=== PATIENT | female | born 1995 | race Caucasian/White ===

== ENCOUNTER 2020-07-02 11:11 | Outpatient (REF) | payer OTHER, SELFPAY ==
[2020-07-02 14:46] LABS: HCG Quantitative 9525 mIU/mL
== END 2020-07-02 11:12 | disposition home or self-care (01) ==
LOC: HO.HMGCLDS 11:11
PROVIDERS: PCP Hospitalist; Visit Provider Family Medicine
DX: Z30.09 Encounter for other general counseling and advice on contraception (principal)
CPT/HCPCS: 84702

== ENCOUNTER → 2020-07-12 10:51 | Outpatient (BNVA) | payer OTHER, SELFPAY | PROVIDERS: PCP Hospitalist; Visit Provider Advanced Practice Midwife | DX: O21.9 Vomiting of pregnancy, unspecified (principal); O99.331 Smoking (tobacco) complicating pregnancy, first trimester; O99.321 Drug use complicating pregnancy, first trimester; F17.210 Nicotine dependence, cigarettes, uncomplicated; F12.90 Cannabis use, unspecified, uncomplicated; Z3A.01 Less than 8 weeks gestation of pregnancy | CPT/HCPCS: 81025; 99211 ==

== ENCOUNTER → 2020-07-26 10:02 | Outpatient (BNVA) | payer OTHER, SELFPAY | PROVIDERS: PCP Hospitalist; Visit Provider Advanced Practice Midwife | DX: Z76.89 Persons encountering health services in other specified circumstances (principal) | CPT/HCPCS: 99212 ==

== ENCOUNTER 2021-07-07 19:18 | Outpatient (REF) | payer OTHER, SELFPAY ==
[2021-07-07 20:02] LABS: Influenza A PCR NEGATIVE (Negative); Influenza B PCR NEGATIVE (Negative); Resp Syncy Virus RNA Qual PCR POSITIVE (Negative); SARS COV2 PCR INHOUSE NEGATIVE (Negative)
== END 2021-07-07 19:19 | disposition home or self-care (01) ==
LOC: HO.LNP 19:18
PROVIDERS: Visit Provider Family Medicine
DX: Z20.822 Contact with and (suspected) exposure to COVID-19 (principal); B34.9 Viral infection, unspecified
CPT/HCPCS: 0241U

== ENCOUNTER 2025-03-07 08:39 | Emergency (ER) | payer OTHER, SELFPAY ==
--- NOTE | ~2025-03-07 | US_ITS ---
CLINICAL HISTORY: on 02 17, bleeding pain, r o retained POC US pelvis transabdominal and transvaginal With color Doppler tracing Comparison: None provided Findings: Uterus measures 8.4 x 4.1 x 4.9 cm. Normal myometrium. No endometrial lesion, 4-5 mm thickness. Small amount of endometrial and endocervical luminal fluid/secretions. Right ovary 2.8 x 2.1 x 2.7 cm. Left ovary 2.2 x 1.5 x 1.5 cm. Normal color Doppler of both ovaries. No free fluid. IMPRESSION: No evidence of retained products of conception. Small amount of fluid/secretions in the endometrial canal. This document has been electronically signed by: Leslie Klein MD on 03/07/2025 11:14:15
[2025-03-07 08:50] VITALS: BP 122/68; PULSE 81; RESP 16; TEMP 36.6; O2SAT 99; BMI 28.3
--- OUTSIDE RECORDS SUMMARY | 2025-03-07 09:45 | XMS_ITS | Encounter Summary ---
Author Organization [facility] Address [address] [place] [address] Phone Care Team Providers Care Furniture Refinisher Name Role Phone Andie Pina MD Primary Care Provider [phone] Encounter Details Date Type Department Care Team (Late st Contact Info) Description 12/14/2010 Conversion Encounter [facility] [address] [place] [id number] Social History Tobacco Use Types Packs/Day Years Used Date Smoking Tobacco: Never Assessed Comments Unknown Sex and Gender Information Value Date Recorded Sex Assigned at Not on file Legal Sex Female 6:43 PM EDT Gender Identity Not on file Sexual Orientation Not on file documented as of this encounter Plan of Treatment Not on file documented as of this encounter Visit Diagnoses Not on filedocumented in this encounter Care Teams Furniture Refinisher Relationship Specialty Start Date End Date Andie Pina MD PCP - General 11/21/17 documented as of this encounter
--- NOTE | 2025-03-07 09:57 | ED.PREGNANCY ---
HPI - General Chief complaint: Vaginal Bleeding Stated complaint: Vaginal bleeding Time Seen by Provider: 03/07/25 09:05 Source: patient Mode of arrival: ambulatory Limitations: no limitations History of Present Illness ED Provider: Iris Recinos APRN HPI Narrative: 29-year-old female with a history of anxiety, depression, ADHD, bipolar disorder presents the ER with complaints of vaginal bleeding and lower abdominal pain intermittently over the last 2 weeks. Patient reports that she had a surgical on February 17 at [facility] and [place]. She had some light bleeding and cramping after this. She reports bleeding and pain worsened after having sexual intercourse on the weekend of the with her partner. she has had intermittent bleeding and pain since then. Some days her bleeding is light and she does not need to use any tampons or pads. Other days she has heavier bleeding and can use up to 5 pads per day. She reports this is associated with lower abdominal cramping. She denies any fevers, chills, urinary complaints. She does not have a follow-up scheduled. She does see OBGYN at [facility] but is unsure of the name of her provider. She is currently on Depo. Her LMP was 12/05. She is [id number] Related Data Home Medications ?Medication ?Instructions ?Recorded ?Confirmed buspirone 10 mg tablet mg PO 06/04/20 07/26/20 clonazepam 1 mg tablet 1 mg PO BEDTIME PRN 06/04/20 lisdexamfetamine 50 mg capsule 50 mg PO QAM 06/04/20 trazodone 50 mg tablet 50 mg PO BEDTIME 06/04/20 Previous Rx's ?Medication ?Instructions ?Recorded vitamins with calcium 1 tab PO DAILY 30 days #30 tabs 07/12/20 no.72-iron 27 mg-folic acid 1 mg tablet ( Plus (calcium carbonate)) doxycycline monohydrate 100 mg 100 mg PO BID #28 caps 03/07/25 capsule metronidazole 500 mg tablet 500 mg PO BID 14 days #28 tabs 03/07/25 ondansetron 4 mg disintegrating 4 mg PO Q6H PRN nausea and 03/07/25 tablet vomiting #15 tabs Allergies Allergy/AdvReac Type Severity Reaction Status Date / Time No Known Allergies (No Known Allergy Verified 03/07/25 08:54 Allergies*) Review of Systems Review of Systems: Yes all other systems are reviewed and are negative Constitutional: Constitutional: Reports no additional constitutional complaints, Denies body ache(s), Denies chills, Denies fever(s), Denies headache(s) and Denies weakness Eyes: Eyes: Reports no additional eye complaints and Denies change in vision ENT: Reports system reviewed and no additional complaints, except as documented, Denies dizziness, Denies headache(s), Denies nasal congestion, Denies nasal discharge and Denies neck pain Cardiovascular: Cardiovascular: Reports no additional cardiovascular complaints, Denies chest pain, Denies leg edema and Denies dyspnea Respiratory: Respiratory: Reports no additional respiratory complaints, Denies cough and Denies dyspnea Gastrointestinal: Gastrointestinal: Reports no additional gastrointestinal complaints, Reports abdominal pain, Denies diarrhea, Denies nausea and Denies vomiting Genitourinary: Genitourinary: Reports no additional female genitourinary complaints, Reports abnormal vaginal bleeding and Denies urinary incontinence Musculoskeletal: Musculoskeletal: Reports no additional musculoskeletal complaints, Denies back pain, Denies arthralgias, Denies joint swelling, Denies neck pain, Denies numbness and Denies tingling Integumentary/Breasts: Skin/Breast: Reports system reviewed and no additional complaints, except as docu and Denies rash Neurologic: Reports system reviewed and no additional complaints, except as documented, Denies Abnormal speech present, Denies dizziness, Denies headache(s), Denies numbness, Denies tingling and Denies weakness PMFSH Past Medical History Attestation statement: The following information was validated with the patient. Source: old records reviewed and nursing notes reviewed Surgical History No pertinent past surgical history Family History Family History Father Hypertension Mother Chronic mental illness Maternal Grandfather Colon cancer Maternal Grandmother Ovarian cancer Social History Social History Household Members: Spouse and Family Alcohol intake: never Smoked in Last 30 Days: No Use of substances other than those prescribed or required for medical reasons: No Advance Directives: No Advance Directives Information Provided: Yes Do you have a plan to hurt others: No Plan Patient : No service: No Current occupational status: unemployed Current occupational exposures/hazards: No Physical Exam Vital Signs: Vital Signs: Last Vital Signs Temp 97.9 F 03/07/25 08:50 Pulse 81 03/07/25 08:50 Resp 16 03/07/25 08:50 BP 122/68 03/07/25 08:50 Pulse Ox 99 03/07/25 08:50 O2 Del Method Room Air 03/07/25 08:50 BMI result Body Mass Index 28.3 Const: General: cooperative, healthy appearing, comfortable and no acute distress Orientation/consciousness: patient oriented x3 Limitations: no limitations HEENT: Head: Yes normal to inspection Ears: hearing grossly normal bilaterally General nose exam: Normal external nose present Face and sinus: Yes normal facial exam Mouth: Normal oral and palatal mucosa present Throat: Yes posterior oropharynx normal Eyes: General: appearance normal, both eyes and all related structures Pupils: Equal, round and reactive pupils present Neck: Neck: Yes normal visual inspection Chest: Chest palpation & inspection: normal inspection of the chest Resp: Effort & Inspection: normal respiratory effort Auscultation: clear to auscultation bilaterally Cardio: Rate: regular rate Rhythm: regular rhythm Peripheral pulses: Peripheral pulses 2+ throughout GI: Inspection: Yes normal to inspection Palpation (GI): Soft to palpation and nontender Auscultation: normal bowel sounds : 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 with insertion of the speculum and swabbing of the cervical area External Female Exam: normal external appearance Speculum Exam - Vagina: normal appearance of the vagina Speculum Exam - Cervix: normal appearance of the cervix Back/Spine/Pelvis: Thoracic/Lumbar Spine: thoracic and lumbar spine normal to inspection Skin: General skin exam: no rashes or lesions noted Neuro: General: patient oriented x3, no focal motor deficits and normal sensation to monofilament Cranial nerves: Yes Equal, round and reactive pupils present Cognition (Neuro): normal cognition Speech: No Abnormal speech present Gait exam (Neuro): Normal gait present Motor exam (neuro): 5/5 motor strength present throughout Extrem: General: Yes normal to inspection Course Course Course Narrative: Labs are unremarkable. Ultrasound shows no retained products of conception. STI panel and vaginal swabs were sent. Patient does have some discomfort during the pelvic exam and so I believe that she may have pelvic inflammatory disease. Patient reports she has no concern for sexually transmitted diseases. I discussed treatment of pelvic inflammatory disease with treatment of ceftriaxone and going home with metronidazole and doxycycline. Patient has declined ceftriaxone. She is worried that she will need to return if she is positive for gonorrhea. I did review antibiotic course at home and recommendations for follow up outpatient with her OBGYN. Reviewed worrisome signs and symptoms of when to return to the emergency room. Comfortable plan for discharge home. Medical Decision Making Medical Decision Making [facility] Narrative: 29-year-old female with a history of anxiety, depression, ADHD, bipolar disorder presents the ER with complaints of vaginal bleeding and lower abdominal pain intermittently over the last 2 weeks. Patient reports that she had a surgical on February 17 at [facility] and [place]. She had some light bleeding and cramping after this. She reports bleeding and pain worsened after having sexual intercourse on the weekend of the with her partner. she has had intermittent bleeding and pain since then. Some days her bleeding is light and she does not need to use any tampons or pads. Other days she has heavier bleeding and can use up to 5 pads per day. She reports this is associated with lower abdominal cramping. She denies any fevers, chills, urinary complaints. She does not have a follow-up scheduled. She does see OBGYN at [facility] but is unsure of the name of her provider. She is currently on Depo. Her LMP was 12/05. She is [id number]. Abdomen is soft and nontender. Vitals are stable. Will obtain labs, UA, vaginal swabs, obtain pelvic exam and pelvic ultrasound Differential Diagnosis Differential Diagnoses: The differential diagnosis associated with the presentation includes Retained products of conception, STI, PID Admission/Observation Consideration of admission/observation: Escalation of care including admission/observation considered Lab Data [facility] Lab Attestation statement: I reviewed the patient's lab results. 03/07/25 09:49 03/07/25 09:49 Labs: Lab Results 03/07/25 Range/Units 09:49 WBC 5.6 (4.8-10.8) X10*3/uL RBC 4.38 (4.20-5.50) X10*6/uL Hgb 13.6 (12.0-16.0) g/dl Hct 39.3 (37.0-47.0) % MCV 89.7 (80.0-98.0) fL MCH 31.1 (27.0-33.0) pg MCHC 34.6 (31.0-35.0) g/dl RDW 12.9 (11.0-16.0) % Plt Count 309 (160-400) X10*3/uL MPV 8.6 L (9.4-12.3) fL Immature Gran % (Auto) 0.4 (0.0-0.4) % Neut % (Auto) 62.8 (45-73) % Lymph % (Auto) 27.5 (20-40) % Ransom % (Auto) 5.4 (2-11) % Eos % (Auto) 3.4 (0-4) % Baso % (Auto) 0.5 (0-2) % Lymph # (Auto) 1.5 (1.2-4.9) X10*3/uL Ransom # (Auto) 0.3 (0.1-1.2) X10*3/uL Eos # (Auto) 0.2 (0.0-0.4) X10*3/uL Baso # (Auto) 0.0 (0.0-0.2) X10*3/uL Abs Immat Gran (auto) 0.02 (0.00-0.03) X10*3/uL Absolute Neuts (auto) 3.5 (2.0-8.3) x10*3/uL Absolute Nucleated RBC 0.000 (0.0-0.012) X10*3/uL Nucleated RBC % (auto) 0.0 (0.0-0.2) /100WBC Sodium 142 (135-145) mmol/L Potassium 3.8 (3.3-5.1) mmol/L Chloride 111 H (96-108) mmol/L Carbon Dioxide 23 (22-29) mmol/L Anion Gap 12 (12-20) BUN 18 H (9-16) mg/dL Creatinine 0.78 (0.5-1.4) mg/dL Estim Creat Clear Calc 97.7 Estimated GFR > 60 Random Glucose 94 (60-115) mg/dL Calcium 9.0 (8.4-10.2) mg/dL Total Bilirubin 0.2 (0.0-1.0) mg/dL Direct Bilirubin < 0.2 (0.0-0.5) mg/dL AST 25 (5-31) U/L ALT 30 (0-31) U/L Alkaline Phosphatase 74 (39-117) U/L Total Protein 7.0 (6.5-8.0) g/dL Albumin 4.3 (3.5-5.0) g/dL Urine Color Yellow Urine Appearance Clear Urine pH 6.5 (5.0-9.0) Ur Specific [place] 1.015 (1.005-1.025) Urine Protein Negative (Neg-Trace) mg/dL Urine Glucose (UA) Negative (Negative) mg/dL Urine Ketones Negative (Negative) mg/dL Urine Blood Negative (Negative) Urine Nitrite Negative (Negative) Ur Leukocyte Esterase Moderate (2+) H (Negative) Urine RBC 0-2 (0-2) /HPF Urine WBC 0-5 (0-5) /HPF Ur Squamous Epith Cells 3-5 (0-2) /HPF Urine Bacteria 2+ (None Seen) Hyaline Casts 0-2 (0-2) /LPF Independent Interpretation I performed an independent interpretation of an: Ultrasound Interpretation: I independently viewed the ultrasound agree with the radiology report Radiology Impression Discussion of test interpretation with radiology: I have reviewed the radiologist's reading. Radiologist Impression: [place] [id number] Ultrasound Report Signed Patient: Rachel Bray MR#: [id number] : 1995 Acct:[id number] Age/Sex: 29 / F ADM Date: 03/07/25 Loc: .ED Attending Dr: Ordering Physician: Iris Reicnos NP Date of Service: 03/07/25 Procedure(s): US pelvic and transvaginal Accession Number(s): [id number] cc: Iris Recinos NP; Physician,Unknown ~ CLINICAL HISTORY: on 02 17, bleeding pain, r o retained POC US pelvis transabdominal and transvaginal With color Doppler tracing Comparison: None provided Findings: Uterus measures 8.4 x 4.1 x 4.9 cm. Normal myometrium. No endometrial lesion, 4-5 mm thickness. Small amount of endometrial and endocervical luminal fluid/secretions. Right ovary 2.8 x 2.1 x 2.7 cm. Left ovary 2.2 x 1.5 x 1.5 cm. Normal color Doppler of both ovaries. No free fluid. IMPRESSION: No evidence of retained products of conception. Small amount of fluid/secretions in the endometrial canal. This document has been electronically signed by: Leslie Klein MD on 03/07/2025 11:14:15 Discharge Plan Discharge Clinical Impression: Acute pelvic inflammatory disease (PID) Patient Disposition: Home, Self-Care Instructions: Pelvic Inflammatory Disease (ED) Additional Instructions: We did send testing for vaginal infections and sexually transmitted diseases. We will call you if these results are positive We are treating you for pelvic inflammatory disease. Take Motrin or Tylenol for pain as needed Pelvic rest for the next 7 days as discussed Follow-up outpatient with your OBGYN Prescriptions: New doxycycline monohydrate 100 mg capsule 100 mg PO BID Qty: 28 0RF metronidazole 500 mg tablet 500 mg PO BID 14 Days Qty: 28 0RF ondansetron 4 mg tablet,disintegrating 4 mg PO Q6H PRN (Reason: nausea and vomiting) Qty: 15 0RF No Action clonazepam 1 mg tablet 1 mg PO BEDTIME PRN trazodone 50 mg tablet 50 mg PO BEDTIME Vyvanse 50 mg capsule 50 mg PO QAM buspirone 10 mg tablet PO Plus (calcium carb) 27 mg iron- 1 mg tablet 1 tab PO DAILY 30 Days Qty: 30 11RF Referrals: Physician,Unknown J [Primary Care Provider, Medical] Print Language: Thai
[2025-03-07 10:04] LABS: Hematocrit 39.3 % (37.0-47.0); Hemoglobin 13.6 g/dl (12.0-16.0); Imm Gran Abs Auto 0.02 X10*3/uL (0.00-0.03); Imm Gran Pct Auto 0.4 % (0.0-0.4); Lymphocytes Absolute Auto 1.5 X10*3/uL (1.2-4.9); MANUAL DIFF FLAG NO; Mean Corpuscular HGB Conc 34.6 g/dl (31.0-35.0); Mean Corpuscular Hemoglobin 31.1 pg (27.0-33.0); Mean Corpuscular Volume 89.7 fL (80.0-98.0); NRBC Abs Auto 0.000 X10*3/uL (0.0-0.012); NRBC Pct Auto 0.0 /100WBC (0.0-0.2); Platelet Count 309 X10*3/uL (160-400); Red Blood Count 4.38 X10*6/uL (4.20-5.50); White Blood Count 5.6 X10*3/uL (4.8-10.8)
[2025-03-07 10:06] LABS: Appearance Urine Clear; Glucose Urine UA Negative (Negative); PH 6.5 (5.0-9.0); Specific Gravity - Urine 1.015 (1.005-1.025); UMIC TRIGGER UACC YES
[2025-03-07 10:19] LABS: UACC Culture Trigger YES
[2025-03-07 10:44] LABS: Alanine Aminotransferase 30 U/L (0-31); Albumin Level 4.3 g/dL (3.5-5.0); Alkaline Phosphatase 74 U/L (39-117); Anion Gap 12 (12-20); Aspartate Amino Transferase 25 U/L (5-31); Blood Urea Nitrogen 18 mg/dL (9-16); Calcium 9.0 mg/dL (8.4-10.2); Carbon Dioxide 23 mmol/L (22-29); Chloride 111 mmol/L (96-108); Creatinine Clr Calc Pharmacy 97.7; Estimated Glomerular Filt Rate > 60; Potassium 3.8 mmol/L (3.3-5.1); Sodium 142 mmol/L (135-145); Total Protein 7.0 g/dL (6.5-8.0)
[2025-03-07 11:44] VITALS: BP 122/68; PULSE 81; RESP 16; TEMP 36.6; O2SAT 99
[2025-03-07 12:33] LABS: Bacterial Vaginosis PCR POSITIVE (Negative); Candida Group PCR NOT DETECTED (Not Detect); Candida glab krusei PCR NOT DETECTED (Not Detect); Trichomonas vaginalis PCR DETECTED (Not Detect)
[2025-03-07 13:02] LABS: CT PCR NOT DETECTED (Not Detect.); NG PCR NOT DETECTED (Not Detect.)
== END 2025-03-07 11:46 | disposition home or self-care (01) ==
PROVIDERS: Nurse Practitioner Family; Emergency Provider Emergency Medicine
DX: N73.9 Female pelvic inflammatory disease, unspecified (principal); N93.9 Abnormal uterine and vaginal bleeding, unspecified; F31.9 Bipolar disorder, unspecified; F90.9 Attention-deficit hyperactivity disorder, unspecified type; Z79.899 Other long term (current) drug therapy
CPT/HCPCS: 36415; 76830; 76856; 80048; 80076; 81001; 81515; 85025; 87086; 87491; 87591; 99284

== ENCOUNTER → 2025-03-07 09:39 | Outpatient (BNV) | payer OTHER, SELFPAY | PROVIDERS: Emergency Provider Emergency Medicine; Visit Provider Radiology Diagnostic Radiology | DX: N93.9 Abnormal uterine and vaginal bleeding, unspecified (principal) | CPT/HCPCS: 76830; 76856 ==

== ENCOUNTER 2025-07-08 13:27 | Emergency (ER) | payer OTHER, SELFPAY ==
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
[2025-07-08 13:59] VITALS: BP 141/77; PULSE 98; RESP 18; TEMP 36.6; O2SAT 100; BMI 31.8
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
--- OUTSIDE RECORDS SUMMARY | 2025-07-08 15:41 | XMS_ITS | Clinical Summary ---
Author Organization [facility] Address [address] [place] [address] Phone Care Team Providers Care Syrup Mixer Helper Name Role Phone Andie Pina MD Primary Care Provider [phone] Allergies No known active allergies Medications clonazePAM 0.5 MG tablet TK 1 T PO QD PRN 1 9 Active FLUoxetine 20 MG capsule Take 1 capsule by mouth daily. 2 9 Active cetirizine (ZYRTEC ALLERGY) 10 MG tabletIndicatio ns:Acute maxillary sinusitis, recurrence not specified Take 1 tablet (10 mg total) by mouth nightly as needed for allergies or rhinitis. 30 tablet 1 9 Active busPIRone 10 MG tablet 9 Active traZODone 50 MG tablet as needed. 9 Active Active Problems Problem Noted Date Diagnosed Date Current moderate episode of major depressive disorder without prior episode 03/26/2019 Overview (03/26/2019): 03/19/2019 - [facility] at [facility] for [facility]. Discharged on fluoxetine, buspirone, clonazepam prn, trazodone prn. Assessment & Plan (03/26/2019 10:35 AM EDT): Stabilized after hospital program for depression and transitioning to a day program starting tomorrow. She has a therapist and medication provider. Follow up with psychiatric team. Attention deficit disorder 11/14/2011 Overview (07/23/2018): Attention deficit disorder, without hyperactivity (314.00) Onset: 11/14/2011 Added by: Andie Pina 07/2018 - Currently not on a stimulant medication for ADHD. Resolved Problems Problem Noted Date Diagnosed Date Resolved Date Overweight 01/05/2015 07/23/2018 Overview (07/22/2018): Overweight (278.02) Onset: 01/05/2015 Added by: Jared Davis Immunizations Immunization Administration Dates Next Due DTaP 5 05/25/2000, 7,1995, 996,1995 HPV, Quadrivalent 11/21/2007,07/23/2007,05/22/20 07 Hep B, ped/adol 1995,1995,1995 Hib (PRP-T) 07/28/1996, 6,1995, 995 IPV 05/25/2000 MMR 05/25/2000,04/25/1996 Meningococcal Conj (Menactra) MCV4P 01/23/2012,1 OPV 1995,1995,1995 Tdap 01/24/2017,05/01/2007 Varicella 05/01/2007,10/20/1996 Family History Medical History Relation Name Comments Heart disease (Premature) Father Blaze Asthma Mother Shannan Asthma Sister Marisela Relation Name Status Comments Father Blaze Mother Shannan Alive Sister Marisela Alive Social History Tobacco Use Types Packs/Day Years Used Date Smoking Tobacco: Never Comments:Never Smoker Alcohol Use Standard Drinks/Week Comments Yes 0 (1 standard drink = 0.6 oz pur e alcohol) Maybe once every other month Hunger/Food Answer Date Recorded No 04/10/2020 Stable Housing Answer Date Recorded No 04/10/2020 Transportation Concerns Answer Date Rec orded No 04/10/2020 Hazards in Home Answer Date Recorded No 05/31/2020 Financing Utilities Answer Date Recorde d No 05/31/2020 Safety at Home Answer Date Recorded No 05/31/2020 Outside Support Answer Date Recorded No 05/31/2020 Understanding Health Concerns Answer Da te Recorded No 05/31/2020 Financing Health Concerns Answer Date R ecorded No 05/31/2020 Missing School or Work Answer Date Ramin rded No 05/31/2020 Comments Unknown Sex and Gender Information Value Date Recorded Sex Assigned at Not on file Legal Sex Female 6:43 PM EDT Gender Identity Not on file Sexual Orientation Not on file Last Filed Vital Signs Vital Sign Reading Time Taken Comments Blood Pressure 96/68 03/26/2019 9:57 AM EDT Pulse 76 01/24/2017 12:05 PM EDT Temperature 36.2 C (97.2 F) 03/26/2019 9:57 AM EDT Respiratory Rate - - Oxygen Saturation - - Inhaled Oxygen Concentration - - Weight 69.6 kg (153 lb 8 oz) 03/26/2019 9:57 AM EDT Height 163 cm (5' 4.17 ) 03/26/2019 9:57 AM EDT Body Mass Index 26.21 03/26/2019 9:57 AM EDT Plan of Treatment Health Maintenance Due Date Last Done Comments Influenza Vaccines (#1) 2025 COVID-19 Vaccine ( season) 2025 DTaP,Tdap,and Td Vaccines (8 - Td or Tdap) 01/24/2027 01/24/2017, 05/01/2007, 05/25/2000, Additional history exists Hepatitis B Vaccines Completed 1995, 1995, 1995 HIB Vaccines Completed 07/28/1996, 03/1996, 1995, Additional history exists IPV Vaccines Completed 05/25/2000, 03/1996, 1995, Additional history exists MMR Vaccines Completed 05/25/2000, 04/25/1996 Varicella Vaccines Completed 05/01/2007, 10/20/1996 HPV Vaccines Completed 11/21/2007, 02/2008, 05/22/2007 Meningococcal Vaccine Completed 01/23/2012, 007 Hepatitis A Vaccines Aged Out No long er eligible based on patient's age to complete this topic Men B Vaccine Aged Out No longer elig ible based on patient's age to complete this topic Pneumococcal Vaccine Aged Out No long er eligible based on patient's age to complete this topic Procedures * Due to [place] [employer] law, this organization might not be sharing sensitive test results. Procedure Name Priority Date/Time Associated Diagnosis Comments CHLAMYDIA AND GONORRHEA, AMPLIFIED Routine 07/22/2018 3:34 PM EST Well adult exam from Last 3 Months or Most Recently Relevant to Health Maintenance Results * Due to [place] [employer] law, this organization might not be sharing sensitive test results. * Chlamydia and Gonorrhea, Amplified (07/22/2018 3:34 PM EST) Chlamydia Trachomatis, DNA Probe NEGATIVE (NEG) [facility] Comment: No Chlamydia Trachomatis RNA detected in this patient's sample (REFERENCE RANGE/NORMAL VALUE: NOT DETECTED) Note: This test uses white sugar supervisor- mediated amplification method to detect rRNA from C. Trachomatis URINE GC AMP PROBE NEGATIVE (NEG) [facility] Comment: No Neisseria Gonorrhoeae RNA detected in this patient's sample (REFERENCE RANGE/NORMAL VALUE: NOT DETECTED) NOTE: This test uses white sugar supervisor-mediated amplification method to detect rRNA from N.Gonorrhoeae. A negative result does not preclude infection. In the case of a negative urine result, testing of an endocervical(female) or urethral (male) specimen is recommended if there is high clinical suspicion of infection. Due to very high sensitivity of Nucleic Acid Amplification Test, false positive results may occur. Therefore, specimen handling is extremely important. In patients in whom the disease is unlikely, additional sample for testing should be considered after an initial positive result. The performance characteristics of this test have not been evaluated in children. The Aptima Combo2 assay is not intended for the evaluation of suspected sexual abuse or for other medico-legal indications. The ordering provider should assess if the patient had consensual sex without risk of sexual abuse. Consult the [facility] if needed. Contact phone number . Therapeutic failure or success cannot be determined with the Aptima Combo2 assay since nucleic acid may persist following appropriate antimicrobial therapy. The Centers for Disease Control and Prevention (CDC) recommends confirmatory retesting using culture or a different nucleic acid amplification test when positive results occur, if indicated. Testing performed or reported by [facility], a Service of [facility], [address], [place] [id number] [facility] [id number] Anatoly Hoyt MD, [employer] Urine 07/22/2018 3:34 PM EST 07/23/2018 12:15 AM EST us Jared Davis MD LAB MICROBIOLOGY - GENERAL O RDERABLES Final Result [facility] from Last 3 Months or Most Recently Relevant to Health Maintenance Care Teams Syrup Mixer Helper Relationship Specialty Start Date End Date Andie Pina MD PCP - General 11/21/17
--- OUTSIDE RECORDS SUMMARY | 2025-07-08 15:41 | XMS_ITS | Encounter Summary ---
Author Organization [facility] Address [address] [place] [address] Phone Care Team Providers Care Ceramist Name Role Phone Andie Pina MD Primary Care Provider [phone] Encounter Details Date Type Department Care Team (Late st Contact Info) Description 12/14/2010 Conversion Encounter [facility] [address] [place] [address] Social History Tobacco Use Types Packs/Day Years [...] on filedocumented in this encounter Care Teams Ceramist Relationship Specialty Start Date End Date Andie Pina MD PCP - General 11/21/17 documented as of this encounter
[2025-07-08 15:57] VITALS: BP 141/77; PULSE 98; RESP 18; TEMP 36.6; O2SAT 100
== END 2025-07-08 15:57 | disposition home or self-care (01) ==
PROVIDERS: Emergency Provider Emergency Medicine
DX: Z04.1 Encounter for examination and observation following transport accident (principal); M79.605 Pain in left leg
CPT/HCPCS: 73502; 73564; 99282; 99283

== ENCOUNTER → 2025-07-08 14:01 | Outpatient (BNV) | payer OTHER, SELFPAY | PROVIDERS: Visit Provider Radiology Diagnostic Radiology | DX: M25.562 Pain in left knee (principal); M25.552 Pain in left hip | CPT/HCPCS: 73502; 73564 ==